=== PATIENT | male | born 1945 | race Caucasian/White ===

== ENCOUNTER 2020-11-17 10:21 | Outpatient (CLI) | payer MEDICARE, BC, SELFPAY ==
[2020-11-17 11:07] LABS: Basophils Absolute Auto 0.1 K/mm3 (0.0-0.1); Basophils Percent Auto 1.3 % (0.2-1.2); Eosinophils Absolute Auto 0.4 K/mm3 (0-0.3); Eosinophils Percent Auto 7.2 % (0-4.4); Hemoglobin 14.5 g/dL (14.0-18.0); Immature Granulocyte Absolute 0.01 K/mm3 (0.00-0.031); Immature Granulocyte Percent A 0.2 % (0-0.5); Lymphocytes Absolute Auto 1.43 K/mm3 (0.9-3.2); Lymphocytes Percent Auto 25.7 % (18.3-44.2); Mean Corpuscular HGB Conc 32.2 g/dl (32-36); Mean Corpuscular Hemoglobin 30.3 pg (26-34); Mean Corpuscular Volume 93.9 fl (80-100); Mean Platelet Volume 11.2 fl (7.4-10.4); Monocytes Absolute Auto 0.5 K/mm3 (0.1-0.6); Monocytes Percent Auto 8.1 % (2.6-8.5); Neutrophils Absolute Auto 3.2 K/mm3 (1.3-6.7); Neutrophils Percent Auto 57.5 % (45.5-73.1); Platelet Count Result 180 k/mm3 (150-375); Red Blood Count 4.79 M/mm3 (4.6-6.20); Red Cell Distribution Width 13.4 % (11.5-14.5); White Blood Count 5.6 K/mm3 (4.5-10.0)
[2020-11-17 11:29] LABS: Alanine Aminotransferase 40 U/L (4-50); Albumin Level 4.3 g/dL (3.5-5.1); Alkaline Phosphatase 65 U/L (38-126); Anion Gap 9 mmol/L (8-16); Aspartate Amino Transferase 33 U/L (17-59); Bilirubin,Total 0.5 mg/dL (0.2-1.3); Blood Urea Nitrogen 11 mg/dL (9-20); Calcium 9.9 mg/dL (8.4-10.2); Carbon Dioxide 24 mmol/L (22-30); Chloride 108 mmol/L (98-107); Cholesterol 192 mg/dL (0-200); Estimated Glomerular Filt Rate > 60; Glucose 120 mg/dL (65-110); HDL Direct 34 mg/dL; Potassium 4.4 mmol/L (3.4-5.0); Sodium 141 mmol/L (137-145); Triglycerides 166 mg/dL (<150)
[2020-11-17 11:40] LABS: LDL Cholesterol Direct 114 mg/dL
[2020-11-17 11:51] LABS: Hemoglobin A1C 6.2 % (<5.7)
[2020-11-17 12:59] LABS: Creatinine Urine 194.5 mg/dL
[2020-11-17 13:04] LABS: MALB Creatinine Ratio 4.4 mg/g (0-30); Microalbumin Urine Random 8.6 mg/L (0-16.7)
[2020-11-17 13:55] LABS: Folic Acid > 20.0 ng/mL (2.76->20)
== END 2020-11-17 10:22 | disposition home or self-care (01) ==
PROVIDERS: PCP Internal Medicine; Visit Provider Nurse Practitioner
DX: Z12.5 Encounter for screening for malignant neoplasm of prostate (principal); E11.9 Type 2 diabetes mellitus without complications; E78.5 Hyperlipidemia, unspecified
CPT/HCPCS: 36415; 80053; 80061; 82043; 82607; 82746; 83036; 84153; 85025; G0103

== ENCOUNTER → 2021-11-03 09:40 | Outpatient (CLI) | payer MEDICARE, SELFPAY ==
--- NOTE | ~2021-11-03 | XR_ITS ---
EXAMINATION: XR chest 2V 11/03/2021 09:50 INDICATION: Shortness of breath PROCEDURE: 2 view chest COMPARISON: No prior studies for comparison. FINDINGS: The lungs are clear. The cardiomediastinal silhouette is within normal limits. There are no pleural effusions. There is no pneumothorax suspected. IMPRESSION: 1: NO ACUTE CARDIOPULMONARY DISEASE. Reviewed, dictated and finalized at location B.
== END ==
PROVIDERS: PCP Internal Medicine; Visit Provider Nurse Practitioner
DX: R06.02 Shortness of breath (principal)
CPT/HCPCS: 71046

== ENCOUNTER 2021-11-08 11:10 | Outpatient (CLI) | payer MEDICARE, SELFPAY ==
[2021-11-08 18:43] LABS: Basophils Absolute Auto 0.1 K/mm3 (0.0-0.1); Basophils Percent Auto 0.8 % (0.2-1.2); Eosinophils Absolute Auto 0.5 K/mm3 (0-0.3); Hematocrit 47.4 % (42.0-52.0); Hemoglobin 15.3 g/dL (14.0-18.0); Immature Granulocyte Absolute 0.01 K/mm3 (0.00-0.031); Immature Granulocyte Percent A 0.2 % (0-0.5); Lymphocytes Absolute Auto 1.76 K/mm3 (0.9-3.2); Lymphocytes Percent Auto 29.2 % (18.3-44.2); Mean Corpuscular HGB Conc 32.3 g/dl (32-36); Mean Corpuscular Hemoglobin 30.1 pg (26-34); Mean Corpuscular Volume 93.1 fl (80-100); Mean Platelet Volume 11.1 fl (7.4-10.4); Monocytes Absolute Auto 0.4 K/mm3 (0.1-0.6); Monocytes Percent Auto 7.1 % (2.6-8.5); Neutrophils Absolute Auto 3.3 K/mm3 (1.3-6.7); Neutrophils Percent Auto 54.7 % (45.5-73.1); Platelet Count Result 164 k/mm3 (150-375); Red Blood Count 5.09 M/mm3 (4.6-6.20); Red Cell Distribution Width 13.3 % (11.5-14.5)
[2021-11-08 19:25] LABS: Alanine Aminotransferase 41 U/L (6-50); Albumin Level 4.3 g/dL (3.5-5.1); Alkaline Phosphatase 67 U/L (38-126); Anion Gap 10 mmol/L (8-16); Aspartate Amino Transferase 41 U/L (17-59); Bilirubin,Total 0.5 mg/dL (0.2-1.3); Blood Urea Nitrogen 11 mg/dL (9-20); Calcium 9.8 mg/dL (8.4-10.2); Carbon Dioxide 25 mmol/L (22-30); Chloride 104 mmol/L (98-107); Cholesterol 211 mg/dL (0-200); Estimated Glomerular Filt Rate > 60; Glucose 124 mg/dL (65-110); HDL Direct 40 mg/dL; Potassium 4.6 mmol/L (3.4-5.0); Sodium 139 mmol/L (137-145); Triglycerides 158 mg/dL (<150)
[2021-11-08 19:26] LABS: Creatinine Urine 92.4 mg/dL
[2021-11-08 19:35] LABS: LDL Cholesterol Direct 145 mg/dL
[2021-11-08 19:57] LABS: Prostate Specific Antigen 3.9 ng/mL (< OR = 4.0)
[2021-11-08 19:58] LABS: Hemoglobin A1C 6.1 % (<5.7)
[2021-11-08 21:02] LABS: MALB Creatinine Ratio < 6.5 mg/g (0-30); Microalbumin Urine Random < 6.0 mg/L (0-16.7)
== END 2021-11-08 11:11 | disposition home or self-care (01) ==
LOC: ANHGOSHLAB 11:16
PROVIDERS: PCP Internal Medicine; Visit Provider Clinical Nurse Specialist
DX: Z12.5 Encounter for screening for malignant neoplasm of prostate (principal); E11.9 Type 2 diabetes mellitus without complications; E78.5 Hyperlipidemia, unspecified; R97.20 Elevated prostate specific antigen [PSA]
CPT/HCPCS: 36415; 80053; 80061; 82043; 83036; 84153; 85025

== ENCOUNTER 2022-03-13 10:48 | Outpatient (CLI) | payer MEDICARE, SELFPAY ==
[2022-03-13 20:18] LABS: Hemoglobin A1C 6.6 % (<5.7)
[2022-03-13 21:06] LABS: Cholesterol 151 mg/dL (0-200); HDL Direct 40 mg/dL; Triglycerides 108 mg/dL (<150)
[2022-03-13 21:17] LABS: LDL Cholesterol Direct 80 mg/dL
== END 2022-03-13 10:49 | disposition home or self-care (01) ==
PROVIDERS: PCP Internal Medicine; Visit Provider Nurse Practitioner
DX: E11.9 Type 2 diabetes mellitus without complications (principal)
CPT/HCPCS: 36415; 80061; 83036

== ENCOUNTER 2022-04-23 13:30 | Emergency (ER) | payer MEDICARE, SELFPAY ==
[2022-04-23 13:39] VITALS: BP 131/75; PULSE 76; RESP 16; TEMP 36.6; O2SAT 100
--- NOTE | 2022-04-23 13:55 | ED.URI ---
HPI - URI/Sore Throat General Stated Complaint: nasal congestion, sneezing Time Seen by Provider: 04/23/22 13:45 Source: patient Mode of arrival: ambulatory Limitations: no limitations History of Present Illness HPI Narrative: Callum is a 76-year-old male patient presenting to the clinic today with complaints of nasal congestion and sneezing x 5 weeks. He denies any sinus pain, fever, or chills. States it feels as though he has a head cold. States that his symptoms began around [place]. Nasal drainage is clear. MD elicited complaint: sore throat and nasal congestion Related Data Home Medications Medication Instructions Recorded Confirmed cholecalciferol (vitamin D3) 1 tablet PO DAILY 11/03/21 03/16/22 mecobalamin (vitamin B12) 1 tablet PO DAILY 11/03/21 03/16/22 multivitamin (Multiple Vitamins 1 tablet PO DAILY 11/03/21 03/16/22 tablet) Allergies Allergy/AdvReac Type Severity Reaction Status Date / Time No Known Allergies Allergy Unverified 03/16/22 11:08 Review of Systems Review of Systems: Pertinent positives per HPI. Patient denies any fever, chills, rash, headache, visual changes, dizziness, cough, shortness of breath, chest pain, palpitations, nausea, vomiting, diarrhea, constipation, abdominal pain, or any urinary issues. [facility] Past Medical History Medical History Chicken pox Heart murmur History of measles, mumps, or rubella Mononucleosis Type 2 diabetes mellitus without complications Surgical History Surgical History History of tonsillectomy Family History Family History Sibling Lung cancer Father Cerebrovascular accident, Onset Age: 85 Patient's father is Hypertension Mother Patient's mother is Type 2 diabetes mellitus COPD (chronic obstructive pulmonary disease) Aneurysm Other Diabetes mellitus Family history of coronary artery disease Social History Social History Smoking status: Former smoker Smoking end date: 10/13/99 Alcohol intake: current Alcohol use details: Pt drinks socially. Lack of Transportation: No Lack of Food: Never True Current Housing: I Have Housing Concerned About Future Housing: No Difficulty Paying Gas/Electric Bills: No Difficulty Paying for Meds: No Currently Unemployed: No Education: Bachelor's Degree Difficulty w/ Childcare or Family Care: No Comments At the time of my signature, I reviewed and agree with the nursing past medical, surgical, social, and family history. There is no relevant family history pertinent to the patient complaint. Exam Narrative: General: Well-developed, well nourished, in no apparent distress Head: Normocephalic, atraumatic Eyes: Pupils equally round and reactive to light bilaterally, EOM intact, sclera and conjunctive clear, no discharge, lids normal Ears: TMs intact and clear, ear canals clear, no drainage, grossly hearing normal. Nose: Nares patent, clear nasal discharge, moderate inflammation, no sinus tenderness. Mouth: Oral pharynx without lesions or masses, good dentition, MMM. Postnasal drip Neck: Supple, trachea midline, no enlargement of anterior or posterior cervical nodes, no thyroid masses or goiter palpable. Cardio: Regular rate and rhythm, s1 and s2 normal, no murmur appreciated. Resp: Clear to auscultation bilaterally, no rhonchi, rales, wheezing or rubs Course Course Emergency Course: Portions of this record may have been created with voice recognition software. Level of Care: Express Care Visit Vital Signs Vital signs: Vital Signs Temperature 36.6 C 04/23/22 13:39 Pulse Rate 76 04/23/22 13:39 Respiratory Rate 16 04/23/22 13:39 Blood Pressure 131/75
== END 2022-04-23 14:02 | disposition home or self-care (01) ==
PROVIDERS: Emergency Provider Nurse Practitioner Family; PCP Internal Medicine
DX: J30.9 Allergic rhinitis, unspecified (principal); Z87.891 Personal history of nicotine dependence; R01.1 Cardiac murmur, unspecified; E11.9 Type 2 diabetes mellitus without complications
CPT/HCPCS: 99213; G0463

== ENCOUNTER 2023-04-02 08:34 | Outpatient (CLI) | payer MEDICARE, SELFPAY ==
--- NOTE | 2023-04-02 08:41 | EST_ITS ---
Patient Info Name: Callum Box Age: 77 years : 1945 Gender: Male Ht: 68 in Wt: 235 lbs BSA: 2.30 m2 HR: 78 bpm BP: 143 / 90 mmHg Exam Date: 04/02/2023 8:53 AM Exam Location: Echo Lab Patient Status: Outpatient Admit Date: 04/02/2023 Staff Ordering Physician: Iwona Gomes NP Attending Provider: Iwona Gomes NP Exercise Technologist: Niya Herbert [facility] Exercise Physician: Oswaldo Hadley DO Exam Type: CA stress test treadmill Study Info A treadmill exercise stress test was performed. Summary 1. 1. Negative Brandon exercise stress test for ischemic ST changes by ECG criteria. 2. 2. Reduced functional capacity, achieving 4.7 METs of workload. 3. 3. Baseline hypertension. 4. 4. Appropriate HR response to exercise. 5. 5. Appropriate HR recovery at 1 minute post exercise. 6. 6. No imaging with stress testing. 7. 7. Patient informed of the above results. Protocol: Brandon Stress ECG Details Stage: REST Duration (min): 0 min : 57 sec Speed (mph): 0.0 Grade (%): 0 HR (bpm): 78 SBP (mmHg): 143 DBP (mmHg): 90 METS: --- Stage: REST Duration (min): 3 min : 23 sec Speed (mph): 0.0 Grade (%): 0 HR (bpm): 101 SBP (mmHg): 143 DBP (mmHg): 90 METS: --- Stage: STAGE 1 Duration (min): 1 min : 0 sec Speed (mph): 1.7 Grade (%): 10 HR (bpm): 117 SBP (mmHg): 143 DBP (mmHg): 90 METS: --- Stage: STAGE 1 Duration (min): 2 min : 0 sec Speed (mph): 1.7 Grade (%): 10 HR (bpm): 133 SBP (mmHg): 143 DBP (mmHg): 90 METS: --- Stage: STAGE 1 Duration (min): 2 min : 25 sec Speed (mph): 1.7 Grade (%): 10 HR (bpm): 138 SBP (mmHg): 143 DBP (mmHg): 90 METS: --- Stage: RECOVERY Duration (min): 0 min : 34 sec Speed (mph): 0.0 Grade (%): 0 HR (bpm): 141 SBP (mmHg): 154 DBP (mmHg): 77 METS: --- Stage: RECOVERY Duration (min): 1 min : 34 sec Speed (mph): 0.0 Grade (%): 0 HR (bpm): 126 SBP (mmHg): 154 DBP (mmHg): 77 METS: --- Stage: RECOVERY Duration (min): 2 min : 34 sec Speed (mph): 0.0 Grade (%): 0 HR (bpm): 97 SBP (mmHg): 182 DBP (mmHg): 92 METS: --- Stage: RECOVERY Duration (min): 3 min : 34 sec Speed (mph): 0.0 Grade (%): 0 HR (bpm): 93 SBP (mmHg): 182 DBP (mmHg): 92 METS: --- Stage: RECOVERY Duration (min): 4 min : 34 sec Speed (mph): 0.0 Grade (%): 0 HR (bpm): 78 SBP (mmHg): 182 DBP (mmHg): 92 METS: --- Stage: RECOVERY Duration (min): 5 min : 28 sec Speed (mph): 0.0 Grade (%): 0 HR (bpm): 90 SBP (mmHg): 152 DBP (mmHg): 92 METS: --- Rest HR: 101 bpm Peak HR: 145 bpm Rest Sys BP: 143 mmHg Peak Sys BP: 182 mmHg Max Pred HR: 144 bpm % Max Pred HR: 101 % Target HR: 122 bpm Max RPP: 26,390 bpm*mmHg Fraga Score: -2 Termination Reason: Reached target heart rate or workload Cardiac Symptoms: Shortness of breath Max ST Seg Deviation: 0.80 mm Total Time: 2 min : 25 sec Rest Gastelum BP: 90 mmHg Peak Gastelum BP:
== END 2023-04-02 08:35 | disposition home or self-care (01) ==
LOC: ANHCARD 08:35
PROVIDERS: PCP Internal Medicine; Visit Provider Nurse Practitioner
DX: R06.02 Shortness of breath (principal); I10 Essential (primary) hypertension
CPT/HCPCS: 93017

== ENCOUNTER 2023-04-27 12:50 | Inpatient (IN) | payer MEDICARE, SELFPAY ==
[2023-04-27] VITALS (25 sets, daily range): BP systolic 87–157; BP diastolic 66–123; PULSE 107–141; RESP 13–24; TEMP 36.1–36.7; O2SAT 90–99; BMI 35.9
--- NOTE | ~2023-04-27 | US_ITS ---
Duplex Sonography of the bilateral lower extremities: Indication: Pulmonary embolus Sagittal and transverse B-mode images as well as color-flow imaging were performed on the right and l eft femoral and popliteal veins. B-mode examination was done without and with compression in the tra nsverse plane. There is good visualization of the bilateral common femoral, proximal profunda femora l, superficial femoral, greater saphenous, and popliteal veins. There is DVT involving the right SFV, which is noncompressible with absence of flow focally. Remainin g deep venous structures in the right lower extremity demonstrate normal flow and compressibility. Deep venous structures in the left lower extremity demonstrate normal flow and compressibility. Impression: DVT involving the right SFV. Reviewed, dictated and finalized at location M. EL POWERPLANT MECHANIC HELPER Impression: DVT involving the right SFV.
--- NOTE | ~2023-04-27 | XR_ITS ---
EXAMINATION: XR chest 2V DATE: 04/27/2023 13:20 INDICATION: Chest pain TECHNIQUE: PA and lateral views of the chest are obtained. COMPARISON: 11/03/2021 FINDINGS: The lungs are free of acute opacities. No pleural effusion or pneumothorax. The cardiomedia stinal silhouette is normal. There is moderate thoracic spondylosis. IMPRESSION: 1. No acute cardiopulmonary abnormality. Reviewed, dictated and finalized at location F. SEWER
--- NOTE | ~2023-04-27 | CT_ITS ---
Clinical Indication: Shortness of breath CT Scan of the Chest with Contrast: Technique: Contiguous sections were acquired throughout the chest after intravenous administration of 100 cc of Omnipaque 350. Dose reduction technique was used on this scan by utilizing automated expos ure control and iterative reconstruction technique. The dose-length product (DLP) was 916.10 mGy-cm. Findings: There is no evidence of any significant mediastinal, hilar or axillary lymphadenopathy. There are ext ensive bilateral pulmonary emboli, involving the right and left main pulmonary arteries, with extensi on into the lobar pulmonary arteries as well as multiple segmental branches. No complete sagittal emb olus present. No definite evidence of right heart strain. There is no evidence of aortic dissection o r aneurysm. There is no evidence of pleural or pericardial effusion. The lungs are clear. No pulmonary nodules or infiltrates are noted. Images through the upper abdomen reveal no abnormalities. Impression: Extensive bilateral pulmonary emboli, as detailed above. No definite evidence of right heart strain. Clear lungs. Case discussed with Dr. Allen at the time of this reading. Reviewed, dictated and finalized at location M. NG SUPERVISOR Impression: Extensive bilateral pulmonary emboli, as detailed above. No definite evidence o f right heart strain. Clear lungs. Case discussed with Dr. Allen at the time of this reading.
--- NOTE | 2023-04-27 12:54 | ECG_ITS ---
Measurements Intervals Valera Rate: 110 P: 79 [place]: 109 QRS: 10 QRSD: 74 T: -2 QT: 309 QTc: 419 Interpretive Statements SINUS TACHYCARDIA WITH SHORT [place] INTERVAL WITH FREQUENT SUPRAVENTRICULAR PREMATURE COMPLEXES ABNORMAL ECG NO PREVIOUS ECG AVAILABLE FOR COMPARISON Electronically Signed On 04-27-2023 13:23:37 THERMOCOUPLE TESTER by Kal Bar M.D.
[2023-04-27 13:08] LABS: Basophils Percent Auto 0.4 % (0.2-1.2); Eosinophils Absolute Auto 0.2 K/mm3 (0-0.3); Eosinophils Percent Auto 2.1 % (0-4.4); Hematocrit 45.3 % (42.0-52.0); Hemoglobin 14.8 g/dL (14.0-18.0); Immature Granulocyte Absolute 0.02 K/mm3 (0.00-0.031); Immature Granulocyte Percent A 0.2 % (0-0.5); Lymphocytes Absolute Auto 2.14 K/mm3 (0.9-3.2); Lymphocytes Percent Auto 26.1 % (18.3-44.2); Mean Corpuscular HGB Conc 32.7 g/dl (32-36); Mean Corpuscular Hemoglobin 30.3 pg (26-34); Mean Corpuscular Volume 92.8 fl (80-100); Mean Platelet Volume 10.8 fl (7.4-10.4); Monocytes Absolute Auto 0.5 K/mm3 (0.1-0.6); Monocytes Percent Auto 5.9 % (2.6-8.5); Neutrophils Absolute Auto 5.4 K/mm3 (1.3-6.7); Neutrophils Percent Auto 65.3 % (45.5-73.1); Platelet Count Result 154 k/mm3 (150-375); Red Blood Count 4.88 M/mm3 (4.6-6.20); Red Cell Distribution Width 13.7 % (11.5-14.5); White Blood Count 8.2 K/mm3 (4.5-10.0)
[2023-04-27 13:19] LABS: Alanine Aminotransferase 47 U/L (6-50); Albumin Level 4.2 g/dL (3.5-5.1); Alkaline Phosphatase 70 U/L (38-126); Anion Gap 9 mmol/L (8-16); Aspartate Amino Transferase 47 U/L (17-59); Bilirubin,Total 0.8 mg/dL (0.2-1.3); Blood Urea Nitrogen 14 mg/dL (9-20); Calcium 9.9 mg/dL (8.4-10.2); Carbon Dioxide 20 mmol/L (22-30); Chloride 111 mmol/L (98-107); Estimated CRCL calculation 73 ml/min; Estimated Glomerular Filt Rate > 60; Glucose 145 mg/dL (65-110); Lipase 196 U/L (23-300); Partial Thromboplastin Time 29.1 SECONDS (22.3-36.8); Potassium 4.1 mmol/L (3.4-5.0); Sodium 140 mmol/L (137-145)
[2023-04-27 13:37] LABS: Troponin I 0.065 ng/mL (0.000-0.034)
[2023-04-27] MEDS: ASPIRIN 81 MG CHEWABLE TABLET 324 MG PO (14:16)
[2023-04-27] MEDS: SODIUM CHLORIDE 0.9% IV 1,000 ML 999 ML IV CONT (15:20)
--- NOTE | 2023-04-27 15:46 | ED.SOB ---
HPI - SOB/Dyspnea General Chief Complaint: Chest Pain Stated Complaint: sob/chest tightness Time Seen by Provider: 04/27/23 15:04 Source: patient Limitations: no limitations History of Present Illness HPI Narrative: Patient is a 77-year-old male presents to the emergency department complaining of shortness of breath, chest tightness, sweatiness, lightheadedness. Patient denies any chest pain rather he states that it just feels tight the patient states that he has been stressed recently his just had surgery on Saturday. Patient admits to an episode of this last week and resolved and then he has noticed since about Saturday that he has been experiencing this constellation of symptoms this seems to be progressively worsening noted that he gets dyspnea on exertion and he noticed it only took about 50 ft for him to get short of breath which is not normal for him. Patient denies a history of heart disease. Patient denies family history of early heart disease. Patient admits to history of high cholesterol and was a former smoker and quit in the year 1999. Patient denies history of high blood pressure or diabetes. Patient denies history of blood clots or unilateral lower extremity swelling. Patient denies recent injuries, recent illness, fever, cough, abdominal pain, nausea, vomiting, diarrhea, melena, hematochezia, urinary discomfort, rash, numbness, weakness, new or change medications. Patient is to history of a stress test approximately 1 month ago. Related Data Home Medications Medication Instructions Recorded Confirmed cholecalciferol (vitamin D3) 1 tablet PO DAILY 11/03/21 03/07/23 mecobalamin (vitamin B12) 1 tablet PO DAILY 11/03/21 03/07/23 multivitamin (Multiple Vitamins 1 tablet PO DAILY 11/03/21 03/07/23 tablet) Allergies Allergy/AdvReac Type Severity Reaction Status Date / Time No Known Allergies Allergy Unverified 03/07/23 11:17 Review of Systems Review of Systems: A 10 system review of systems was completed on the patient and is negative except for what is stated in the HPI. Nursing and ancillary documentation was reviewed. [facility] Past Medical History Medical History Chicken pox Heart murmur History of measles, mumps, or rubella Mononucleosis Type 2 diabetes mellitus without complications Surgical History Surgical History History of tonsillectomy Family History Family History Sibling Lung cancer Father Cerebrovascular accident, Onset Age: 85 Patient's father is Hypertension Mother Patient's mother is Type 2 diabetes mellitus COPD (chronic obstructive pulmonary disease) Aneurysm Other Diabetes mellitus Family history of coronary artery disease Social History Social History (Updated 03/07/23 @ 11:25 by Smita Morrow [facility]) Smoking status: Former smoker Smoking end date: 10/13/99 Alcohol intake: current Alcohol use details: Pt drinks socially. Do You Feel Safe in your Home?: Yes Lack of Transportation: No Lack of Food: Never True Current Housing: I Have Housing Concerned About Future Housing: No Difficulty Paying Gas/Electric Bills: No Difficulty Paying for Meds: No Currently Unemployed: No Education: Bachelor's Degree Difficulty w/ Childcare or Family Care: No Comments At time of signature, I have reviewed and agree with nursing past medical, surgical, social and family history unless otherwise noted. Please see the nursing chart for further information. There is no relevant family history pertinent to the presenting complaint. Exam Narrative: CONST: No acute distress. Well nourished. HENMT: Head is normocephalic and atraumatic. Moist mucous membranes. No posterior oropharynx erythema. EYES: No conjunctival ict
[2023-04-27 15:48] LABS: Magnesium 2.3 mg/dL (1.6-2.3)
[2023-04-27 15:49] LABS: D Dimer 9.63 ug/mL (<0.48)
[2023-04-27 15:56] LABS: Thyroid Stimulating Hormone Reflex 0.825 uIU/mL (0.465-4.68)
[2023-04-27 16:06] LABS: Troponin I 0.073 ng/mL (0.000-0.034)
[2023-04-27 16:12] LABS: Influenza A QL RT-PCR Negative (Negative); Influenza B QL RT-PCR Negative (Negative); RSV RNA, RT-PCR Negative (Negative); SARS-CoV-2 RNA PCR Negative (Negative)
[2023-04-27 16:52] LABS: NT Pro B Type Natriuretic Pept 5440 pg/mL (19.9-100)
[2023-04-27] MEDS: HEPARIN SODIUM 5,000 UNITS/ML VIAL 6500 UNITS IV PUSH (17:37)
[2023-04-27] MEDS: HEPARIN SOD/D5W 100 UNITS/ML 25,000 UNITS/250 ML BAG 15 UNITS IV CONT (17:38)
--- NOTE | 2023-04-27 18:31 | ADMGEN ---
This patient, Callum Box, was admitted to IMU Room 205-01. Patient/family oriented to hospital policies and general routines including ID bracelet, bed and alarms, visiting hours, pain management, procedures, bathroom and other care routines, personal items, smoking policy, room service/diet, and visiting hours. Information on how to activate the Rapid Response Team has been discussed. Patient/Family are encouraged to report perceived risks to care and to ask questions if they do not understand what they are told or what they should do.
--- NOTE | 2023-04-27 19:06 | PM.IMHP ---
H&P: HPI History of Present Illness Date/Time: 04/27/23 19:05 Chief Complaint: Chest tightness and shortness of breath. Narrative: This is a very pleasant 77-year-old male with diet-controlled diabetes, hypercholesterolemia, and obstructive sleep apnea on CPAP who presented to the emergency department via private vehicle from home for evaluation of chest tightness and shortness of breath. The patient provides the following history. He initially noticed symptoms on Saturday to include progressive dyspnea on exertion, chest tightness, occasional sweats, and lightheadedness. It is now to the point where he gets short of breath even walking 50 ft around the home which is unusual for him. His symptoms have been getting worse each day. He has no known history of coronary artery disease and in fact had a treadmill stress test on April 02 which was negative for ischemic ST changes by EKG. This stress test was ordered after he noticed sometime in February that he was becoming winded when walking up a flight of steps in his home which was a new development. EKG today showed a sinus tachycardia with frequent supraventricular complexes and he has been tachycardic in the low 100s since presentation. Labs were significant for a D-dimer of 9.63, proBNP 5440, troponin of 0.065. Chest CTA showed extensive bilateral pulmonary emboli with no definite evidence of right heart strain. Blood pressures have been stable and his SpO2 has been in the mid to upper 90s on room air. He was started on heparin drip in the ED and is being admitted in this setting. He has no prior history of venous thromboembolism and denies family history of the same. Weight has remained stable. Colonoscopy several years ago was unremarkable. He had 1 elevated PSA level but it apparently normalized. No recent travel. He denies a sedentary lifestyle. Review of Systems Review of Systems: Twelve systems were reviewed and are negative except for as per HPI. [facility] Past Medical History Medical History Chicken pox Diet-controlled type 2 diabetes mellitus Heart murmur History of measles, mumps, or rubella Hyperlipidemia Mononucleosis Obstructive sleep apnea on CPAP Smoking history Surgical History Surgical History History of tonsillectomy Family History Family History Sibling Lung cancer Father Cerebrovascular accident, Onset Age: 85 Patient's father is Hypertension Mother Patient's mother is Type 2 diabetes mellitus COPD (chronic obstructive pulmonary disease) Aneurysm Other Diabetes mellitus Family history of coronary artery disease Social History Social History Social History: Surrogate medical decision maker: Chelsi Box, spouse. Code status: Full code. Smoking packs per day: 1.5 Smoking cigarettes per day: 30.0 Years smoked: 34 Smoking pack-years: 51.00 Smoking status: Former smoker Smoking end date: 10/13/99 Alcohol intake: current Drinks per week: 1 Alcohol use details: Pt drinks socially. Substance use: never Do You Feel Safe in your Home?: Yes Lack of Transportation: No Lack of Food: Never True Current Housing: I Have Housing Concerned About Future Housing: No Difficulty Paying Gas/Electric Bills: No Difficulty Paying for Meds: No Currently Unemployed: No Education: High School Diploma/GED Difficulty w/ Childcare or Family Care: No Additional living arrangements comments: Lives with spouse in [place]. Additional occupation/education comments: Retired. Spiritual care concerns: Yes Meds Home Medications and Allergies Home Medications Medication Instructions Recorded Confirmed Type multivitamin (Multiple Vitamins 1 tablet PO 2100 11/03/21 04/27/23 History tablet)
[2023-04-27 19:28] LABS: Troponin I 0.082 ng/mL (0.000-0.034)
[2023-04-27 19:38] LABS: Partial Thromboplastin Time > 200.0 SECONDS (22.3-36.8)
[2023-04-27 19:47] LABS: Hemoglobin A1C 6.9 % (<5.7)
[2023-04-27 21:07] LABS: Glucose Point of Care 177 mg/dl (65-105)
[2023-04-27] MEDS: SODIUM CHLORIDE 0.9% IV 1,000 ML 125 ML IV CONT (22:14)
[2023-04-27] MEDS: MULTIVITAMINS THERAPEUTIC TAB (*BKC) 1 TABLET PO (22:15)
[2023-04-27] MEDS: EZETIMIBE 10 MG TABLET PO (22:15)
[2023-04-27] MEDS: VITAMIN B COMPLEX CAPSULE 1 CAP PO (22:15)
[2023-04-27] MEDS: CHOLECALCIFEROL 400 UNITS TABLET (VIT D) PO (22:16)
[2023-04-28] VITALS (12 sets, daily range): BP systolic 112–139; BP diastolic 61–94; PULSE 100–122; RESP 15–20; TEMP 36.2–36.8; O2SAT 93–96
[2023-04-28 07:53] LABS: Glucose Point of Care 124 mg/dl (65-105)
[2023-04-28 08:35] LABS: Basophils Absolute Auto 0.1 K/mm3 (0.0-0.1); Basophils Percent Auto 0.6 % (0.2-1.2); Eosinophils Absolute Auto 0.2 K/mm3 (0-0.3); Eosinophils Percent Auto 1.9 % (0-4.4); Hematocrit 42.1 % (42.0-52.0); Hemoglobin 13.5 g/dL (14.0-18.0); Immature Granulocyte Absolute 0.02 K/mm3 (0.00-0.031); Immature Granulocyte Percent A 0.2 % (0-0.5); Lymphocytes Absolute Auto 2.32 K/mm3 (0.9-3.2); Lymphocytes Percent Auto 28.2 % (18.3-44.2); Mean Corpuscular HGB Conc 32.1 g/dl (32-36); Mean Corpuscular Hemoglobin 30.4 pg (26-34); Mean Corpuscular Volume 94.8 fl (80-100); Mean Platelet Volume 11.1 fl (7.4-10.4); Monocytes Absolute Auto 0.7 K/mm3 (0.1-0.6); Monocytes Percent Auto 8.1 % (2.6-8.5); Platelet Count Result 142 k/mm3 (150-375); Red Blood Count 4.44 M/mm3 (4.6-6.20); White Blood Count 8.2 K/mm3 (4.5-10.0)
[2023-04-28 08:46] LABS: Alanine Aminotransferase 40 U/L (6-50); Albumin Level 3.5 g/dL (3.5-5.1); Alkaline Phosphatase 67 U/L (38-126); Anion Gap 10 mmol/L (8-16); Aspartate Amino Transferase 35 U/L (17-59); Bilirubin,Total 0.8 mg/dL (0.2-1.3); Blood Urea Nitrogen 15 mg/dL (9-20); Calcium 9.3 mg/dL (8.4-10.2); Carbon Dioxide 21 mmol/L (22-30); Chloride 110 mmol/L (98-107); Estimated CRCL calculation 12 ml/min; Estimated Glomerular Filt Rate > 60; Glucose 156 mg/dL (65-110); Magnesium 2.3 mg/dL (1.6-2.3); Potassium 4.1 mmol/L (3.4-5.0); Sodium 141 mmol/L (137-145)
[2023-04-28 08:47] LABS: Partial Thromboplastin Time 82.3 SECONDS (22.3-36.8)
[2023-04-28 09:28] LABS: Thyroid Stimulating Hormone Reflex 0.748 uIU/mL (0.465-4.68)
[2023-04-28 11:53] LABS: Glucose Point of Care 114 mg/dl (65-105)
[2023-04-28] MEDS: HEPARIN SOD/D5W 100 UNITS/ML 25,000 UNITS/250 ML BAG 12 UNITS IV CONT (14:45)
[2023-04-28 15:15] LABS: Partial Thromboplastin Time 63.1 SECONDS (22.3-36.8)
[2023-04-28 15:52] LABS: Prostate Specific Antigen 3.9 ng/mL (< OR = 4.0)
[2023-04-28 15:54] LABS: Glucose Point of Care 125 mg/dl (65-105)
[2023-04-28] MEDS: HEPARIN SODIUM 5,000 UNITS/ML VIAL 3500 UNITS IV PUSH (16:16)
--- NOTE | 2023-04-28 17:31 | PM.IMPN ---
Progress Note: A&P Assessment and Plan (1) Bilateral pulmonary embolism: Code(s): I26.99 - Other pulmonary embolism without acute cor pulmonale Status: Acute Assessment and Plan: Awaiting ECHO and venous dopplers Will Start on Eliquis tomorrow (2) Elevated troponin: Code(s): R79.89 - Other specified abnormal findings of blood chemistry Status: Acute (3) Diet-controlled type 2 diabetes mellitus: Code(s): E11.9 - Type 2 diabetes mellitus without complications Status: Acute (4) Obstructive sleep apnea on CPAP: Code(s): G47.33 - Obstructive sleep apnea (adult) (pediatric) Status: Acute (5) Hyperlipidemia: Qualifiers: Hyperlipidemia type: unspecified Qualified Code(s): E78.5 - Hyperlipidemia, unspecified Code(s): E78.5 - Hyperlipidemia, unspecified Status: Acute Plan The patient presented to the emergency department for evaluation of chest tightness and increasing dyspnea since Saturday as detailed in HPI. Labs, imaging, EKG, and all reports were personally reviewed. CTA of the chest showed extensive bilateral pulmonary emboli with no noticeable heart strain. Troponin was mildly elevated and proBNP was 5440. He is hemodynamically stable with blood pressures in the 120s an SpO2 in the mid upper 90s on room air. He does not appear in any distress. Heparin drip has been initiated. Lower extremity venous Doppler ultrasounds ordered to evaluate for possible DVT. Precipitating etiology is not entirely clear. He gives no history to suggest that it was provoked. Check PSA as he reports having an isolated, elevated PSA level a couple of years ago. Troponins will be trended to peak. Echocardiogram ordered. Initiate sliding scale insulin, Accu-Cheks, and hypoglycemic protocol. Check hemoglobin A1c. CPAP will be provided for the patient to use while hospitalized. His home medications will be reviewed and resumed as appropriate. Findings and treatment plan were discussed with the patient. Subjective Date/time seen: 04/28/23 17:31 Interval history: Seen and examined; He denies fresh concerns. Review of Systems Review of Systems: Twelve systems were reviewed and are negative except for as per HPI. Exam Narrative: General: Mildly ill but nontoxic-appearing male sitting up in bed. HEENT: PERRL, EOMI. Sclera anicteric. Oral mucosa moist. Neck: Supple. Mild jugular venous distension. Respiratory: Respirations are nonlabored but he did get a bit short of breath when trying to push himself up in bed. Lung are clear to auscultation bilaterally. Cardiovascular: Tachycardic with normal S1-S2. Gastrointestinal: Abdomen is soft, nontender, and nondistended with positive bowel sounds. Skin: Warm and dry. No rash or lesions on limited exam. Extremities: No cyanosis, clubbing, or significant edema. Radial and pedal pulses intact. No palpable knots or cords. Negative Monika sign bilaterally. Neurological: Alert. Cranial nerves 2-12 are grossly intact. No gross focal deficits to casual conversation. Psychiatric: Pleasant and cooperative with normal mood and affect. Judgment and insight intact. Objective Data Vital Signs Vital Signs: Vital Signs - 24 hr 04/27/23 17:40 04/27/23 17:46 04/27/23 18:00 Temperature 97.5 F L Pulse Rate 135 H 134 H 131 H Respiratory Rate 24 H 15 20 Blood Pressure 124/92 H 112/88 Pulse Oximetry 95 96 Oxygen Delivery 04/27/23 18:01 04/27/23 18:16 04/27/23 18:40 Temperature Pulse Rate 133 H 131 H Respiratory Rate 16 22 H Blood Pressure 118/81 122/93 H Pulse Oximetry 97 95 Oxygen Delivery Room Air 04/27/23 19:10 04/27/23 19:11 04/27/23 20:00 Temperature 98.0 F 96.9 F L Pulse Rate 126 H 131 H Respiratory Rate 20 20 Blood Pressure 87/73 L 120/84 98/72 L Pulse Oximetry 96 93 Oxygen Delivery 04/27/23 20:00 04/27/23 23:32 04/28/23 00:00 Temperature 97.4 F L Pulse Rate 141 H
[2023-04-28 19:46] LABS: Glucose Point of Care 156 mg/dl (65-105)
[2023-04-28] MEDS: CHOLECALCIFEROL 400 UNITS TABLET (VIT D) PO (20:10)
[2023-04-28] MEDS: MULTIVITAMINS THERAPEUTIC TAB (*BKC) 1 TABLET PO (20:10)
[2023-04-28] MEDS: VITAMIN B COMPLEX CAPSULE 1 CAP PO (20:11)
[2023-04-28] MEDS: EZETIMIBE 10 MG TABLET PO (20:11)
[2023-04-28 22:40] LABS: Partial Thromboplastin Time 111.4 SECONDS (22.3-36.8)
[2023-04-29] VITALS: PULSE 109
--- NOTE | 2023-04-29 | ECHO_ITS ---
Patient Info Name: Callum Box Age: 77 years : 1945 Gender: Male Ht: 68 in Wt: 229 lbs BSA: 2.27 m2 HR: 111 bpm BP: 133 / 75 mmHg Technical Quality: Fair Exam Date: 04/29/2023 7:59 AM Exam Location: Echo Lab Patient Status: Inpatient Admit Date: 04/27/2023 Staff Ordering Physician: Tai Tang MD Executive Search Consultant: Niya Herbert RDCS Attending Provider: Oz Silva MD Referring Physician: Clyde WATSON; Exam Type: CA echo dop color flow w con Study Info Indications - Pulmonary embolism Complete two-dimensional, color flow and Doppler transthoracic echocardiogram is performed with contrast to opacify the left ventricle and to improve the deliniation of the left ventricle endocardial borders. Contrast/Agitated Saline Contrast/Ag. Saline: Definity Amount: 2.00 ml Administered By: Niya Herbert RDCS Existing IV Access: Yes IV Access Condition: patent with no signs of infiltration Summary 1. Definity contrast administered improved wall motion interpretation. 2. Left ventricular chamber dimension is normal. 3. Left ventricular systolic function is hyperdynamic, estimated at >70%. 4. The left ventricular diastolic function is grade I diastolic dysfunction. 5. E/e' 4 is not elevated. 6. Right ventricular chamber dimension is mildly enlarged. 7. D shape LV septum during systole suggests RV pressure overload. 8. Right atrial chamber dimension is mildly enlarged. 9. There is mild aortic valve sclerosis. 10. Mild pulmonary hypertension, estimated pulmonary arterial systolic pressure is 43 mmHg. Left Ventricle Definity contrast administered improved wall motion interpretation. E/e' 4 is not elevated. Left ventricular chamber dimension is normal. Left ventricular systolic function is hyperdynamic, estimated at >70%. The left ventricular diastolic function is grade I diastolic dysfunction. Right Ventricle D shape LV septum during systole suggests RV pressure overload. Right ventricular systolic function is normal and with normal TAPSE 2.1 cm. Right ventricular chamber dimension is mildly enlarged. Left Atria Left atrial chamber dimension is normal. Right Atria Right atrial chamber dimension is mildly enlarged. Aortic Valve The aortic valve is trileaflet. There is mild aortic valve sclerosis. There is no aortic valve stenosis. There is no aortic valve regurgitation. Pulmonic Valve There is no pulmonic regurgitation. Mitral Valve There is no mitral valve stenosis. There is no mitral valve regurgitation. Tricuspid Valve There is no tricuspid valve regurgitation. Mild pulmonary hypertension, estimated pulmonary arterial systolic pressure is 43 mmHg. Pericardium/Pleural There is no pericardial effusion. Inferior Vena Cava Normal inferior vena cava with >50% collapse upon inspiration consistent with normal right atrial pressure, 5 mmHg. Aorta The aortic root size at the sinus of Valsalva is normal. Left Ventricular Outflow Tract Name Value Normal LVOT 2D LVOT Diameter 2.04 cm LVOT Doppler LVOT Peak Gradient 1 mmHg LVOT Mean Gradient 1 mmHg LVOT VTI
[2023-04-29 04:00] VITALS: PULSE 119
[2023-04-29 05:07] LABS: Basophils Percent Auto 0.4 % (0.2-1.2); Eosinophils Absolute Auto 0.3 K/mm3 (0-0.3); Eosinophils Percent Auto 3.3 % (0-4.4); Hematocrit 42.2 % (42.0-52.0); Hemoglobin 13.7 g/dL (14.0-18.0); Immature Granulocyte Absolute 0.03 K/mm3 (0.00-0.031); Immature Granulocyte Percent A 0.4 % (0-0.5); Lymphocytes Absolute Auto 2.38 K/mm3 (0.9-3.2); Lymphocytes Percent Auto 29.8 % (18.3-44.2); Mean Corpuscular HGB Conc 32.5 g/dl (32-36); Mean Corpuscular Hemoglobin 30.4 pg (26-34); Mean Corpuscular Volume 93.6 fl (80-100); Monocytes Absolute Auto 0.6 K/mm3 (0.1-0.6); Monocytes Percent Auto 7.1 % (2.6-8.5); Neutrophils Absolute Auto 4.7 K/mm3 (1.3-6.7); Platelet Count Result 150 k/mm3 (150-375); Red Blood Count 4.51 M/mm3 (4.6-6.20); Red Cell Distribution Width 13.8 % (11.5-14.5)
[2023-04-29 05:20] LABS: Alanine Aminotransferase 38 U/L (6-50); Albumin Level 3.7 g/dL (3.5-5.1); Alkaline Phosphatase 64 U/L (38-126); Anion Gap 8 mmol/L (8-16); Aspartate Amino Transferase 36 U/L (17-59); Bilirubin,Total 0.8 mg/dL (0.2-1.3); Blood Urea Nitrogen 13 mg/dL (9-20); Calcium 9.4 mg/dL (8.4-10.2); Carbon Dioxide 24 mmol/L (22-30); Chloride 109 mmol/L (98-107); Estimated CRCL calculation 11 ml/min; Estimated Glomerular Filt Rate > 60; Glucose 138 mg/dL (65-110); Sodium 141 mmol/L (137-145)
[2023-04-29 06:06] LABS: Partial Thromboplastin Time 76.6 SECONDS (22.3-36.8)
[2023-04-29 06:10] VITALS: BP 133/75; PULSE 128; RESP 18; TEMP 36.2; O2SAT 93
[2023-04-29 07:50] LABS: Glucose Point of Care 141 mg/dl (65-105)
[2023-04-29 08:00] VITALS: BP 124/84; PULSE 116; PULSE 117; RESP 20; TEMP 36.7; O2SAT 93
[2023-04-29] MEDS: PERFLUTREN LIPID MICROSPHERES 1.5 ML VIAL DILUTED TO 10 ML TOTAL VOLUME IV PUSH (08:50)
[2023-04-29] MEDS: APIXABAN 5 MG TABLET 10 MG PO (09:22)
--- NOTE | 2023-04-29 12:40 | IVDEFINITY ---
Prior to administration of IV Definity the patient was educated on the risks and benefits of the imaging enhancing agent including potential adverse side effects. The patient verbalized understanding. Allergies were verified. No exclusion criteria were identified and at least one of the following inclusion criteria were met: 1) physician request, 2) patient technically difficult to image (per the [place] [employer] Echocardi[employer] guidelines of two or more segments not discernable within the apical view), or 3) questionable left ventricular function. ?
[2023-04-29 13:49] LABS: Glucose Point of Care 130 mg/dl (65-105)
--- NOTE | 2023-04-29 15:13 | PM.DS ---
DS: Admitting Diagnosis Discharge Date 04/29/23 Admitting Diagnosis 1. Bilateral PE 2. Shortness of breath DS: Discharge Diagnosis Discharge Diagnosis (1) Bilateral pulmonary embolism: Code(s): I26.99 - Other pulmonary embolism without acute cor pulmonale Status: Acute Assessment and Plan: Heparin; Eliquis (2) Saphenous vein clot: Qualifiers: Laterality: right Qualified Code(s): I82.811 - Embolism and thrombosis of superficial veins of right lower extremity Code(s): I82.819 - Embolism and thrombosis of superficial veins of unspecified lower extremity Status: Acute Assessment and Plan: Heparin infusion; Discharged on Eliquis (3) Hyperlipidemia: Qualifiers: Hyperlipidemia type: unspecified Qualified Code(s): E78.5 - Hyperlipidemia, unspecified Code(s): E78.5 - Hyperlipidemia, unspecified Status: Acute Assessment and Plan: On Ezetimibe (4) Diet-controlled type 2 diabetes mellitus: Code(s): E11.9 - Type 2 diabetes mellitus without complications Status: Acute (5) Obesity (BMI 30-39.9): Code(s): E66.9 - Obesity, unspecified Status: Acute Assessment and Plan: Diet and lifestyle modification counseling DS: Summary Hospital Course Reason for hospitalization: 1. Shortness of breath 2. Bilateral pulmonary emboli 3. Right SFV thrombus Hospital Course: Callum Box is a very pleasant 77-year-old male with diet-controlled diabetes, hypercholesterolemia, and obstructive sleep apnea on CPAP who presented to the emergency department via private vehicle from home for evaluation of chest tightness and shortness of breath. The patient provides the following history. He initially noticed symptoms on Saturday to include progressive dyspnea on exertion, chest tightness, occasional sweats, and lightheadedness. It is now to the point where he gets short of breath even walking 50 ft around the home which is unusual for him. His symptoms have been getting worse each day. He has no known history of coronary artery disease and in fact had a treadmill stress test on April 02 which was negative for ischemic ST changes by EKG. This stress test was ordered after he noticed sometime in February that he was becoming winded when walking up a flight of steps in his home which was a new development. EKG showed a sinus tachycardia with frequent supraventricular complexes and he has been tachycardic in the low 100s since presentation. Labs were significant for a D-dimer of 9.63, proBNP 5440, troponin of 0.065. Chest CTA showed extensive bilateral pulmonary emboli with no definite evidence of right heart strain. Blood pressures have been stable and his SpO2 has been in the mid to upper 90s on room air. He was started on heparin drip in the ED and is being admitted in this setting. He has no prior history of venous thromboembolism and denies family history of the same. Weight has remained stable. Colonoscopy several years ago was unremarkable. He had 1 elevated PSA level but it apparently normalized. No recent travel. He denies a sedentary lifestyle. Procedures: CTA chest, ECHO, Venous ECHO: Summary ? 1. Definity contrast administered improved wall motion interpretation. ? 2. Left ventricular chamber dimension is normal. ? 3. Left ventricular systolic function is hyperdynamic, estimated at >70%. ? 4. The left ventricular diastolic function is grade I diastolic dysfunction. ? 5. E/e' 4 is not elevated. ? 6. Right ventricular chamber dimension is mildly enlarged. ? 7. D shape LV septum during systole suggests RV pressure overload. ? 8. Right atrial chamber dimension is mildly enlarged. ? 9. There is mild aortic valve sclerosis. ? 10. Mild pulmonary hypertension, estimated pulmonary arterial systolic pressure is 43 mmHg. Bilateral Lower extremity doppler: DVT involving the right SFV. Treatment: Heparin infusion; Teresa Discharged on
[2023-04-29 15:22] VITALS: BP 140/90; PULSE 115; RESP 18; TEMP 36.8; O2SAT 95
== END 2023-04-29 17:15 | disposition home or self-care (01) | DRG 176 ==
LOC: ANHED 17:09 → ANHIMU 17:52
PROVIDERS: Emergency Medicine; Internal Medicine; Physician Assistant; Admitting Provider Internal Medicine; Emergency Provider Student in an Organized Health Care Education/Training Program; PCP Internal Medicine; Visit Provider Internal Medicine
DX: I26.99 Other pulmonary embolism without acute cor pulmonale (principal); I82.811 Embolism and thrombosis of superficial veins of right lower extremity; E11.9 Type 2 diabetes mellitus without complications; E78.00 Pure hypercholesterolemia, unspecified; E66.9 Obesity, unspecified; G47.33 Obstructive sleep apnea (adult) (pediatric); R79.89 Other specified abnormal findings of blood chemistry; Z68.35 Body mass index [BMI] 35.0-35.9, adult; Z20.822 Contact with and (suspected) exposure to COVID-19; Z87.891 Personal history of nicotine dependence; Z99.89 Dependence on other enabling machines and devices
CPT/HCPCS: 36415; 71046; 71275; 80053; 82948; 83036; 83690; 83735; 83880; 84153; 84443; 84484; 85025; 85380; 85610; 85730; 87637; 93005; 93970; 96361; 96374; 97161; 99291; A9270; C8929; J1644; J7030; Q9957; Q9967

== ENCOUNTER 2023-05-10 10:26 | Outpatient (CLI) | payer MEDICARE, SELFPAY ==
[2023-05-10 19:48] LABS: Basophils Absolute Auto 0.1 K/mm3 (0.0-0.1); Eosinophils Absolute Auto 0.4 K/mm3 (0-0.3); Eosinophils Percent Auto 6.4 % (0-4.4); Hematocrit 46.8 % (42.0-52.0); Hemoglobin 14.8 g/dL (14.0-18.0); Immature Granulocyte Absolute 0.01 K/mm3 (0.00-0.031); Immature Granulocyte Percent A 0.2 % (0-0.5); Lymphocytes Absolute Auto 1.42 K/mm3 (0.9-3.2); Lymphocytes Percent Auto 22.7 % (18.3-44.2); Mean Corpuscular HGB Conc 31.6 g/dl (32-36); Mean Corpuscular Hemoglobin 30.1 pg (26-34); Mean Corpuscular Volume 95.3 fl (80-100); Mean Platelet Volume 11.5 fl (7.4-10.4); Monocytes Absolute Auto 0.5 K/mm3 (0.1-0.6); Monocytes Percent Auto 7.2 % (2.6-8.5); Neutrophils Absolute Auto 3.9 K/mm3 (1.3-6.7); Neutrophils Percent Auto 62.5 % (45.5-73.1); Platelet Count Result 191 k/mm3 (150-375); Red Blood Count 4.91 M/mm3 (4.6-6.20); Red Cell Distribution Width 13.5 % (11.5-14.5); White Blood Count 6.3 K/mm3 (4.5-10.0)
[2023-05-17 18:17] LABS: Factor V (Leiden) Mutation NEGATIVE
== END 2023-05-10 10:27 | disposition home or self-care (01) ==
LOC: ANHGOSHLAB 10:28
PROVIDERS: PCP Internal Medicine; Visit Provider Clinical Nurse Specialist
DX: I26.99 Other pulmonary embolism without acute cor pulmonale (principal); I82.819 Embolism and thrombosis of superficial veins of unspecified lower extremity
CPT/HCPCS: 36415; 81240; 81241; 85025

== ENCOUNTER 2023-05-17 11:46 | Outpatient (CLI) | payer MEDICARE, SELFPAY ==
[2023-05-23 05:21] LABS: Anti Cardio Antibody IgM <2.0 MPL-U/mL (<20.0); Anti Cardiolipin Antibody IgA <2.0 APL-U/mL (<20.0); Anti Cardiolipin Antibody IgG <2.0 GPL-U/mL (<20.0); PS/PT AB IgG 10 U (<=30); PS/PT AB IgM 15 U (<=30)
== END 2023-05-17 11:47 | disposition home or self-care (01) ==
LOC: ANHGOSHLAB 11:48
PROVIDERS: PCP Internal Medicine; Visit Provider Clinical Nurse Specialist
DX: I26.99 Other pulmonary embolism without acute cor pulmonale (principal); I82.819 Embolism and thrombosis of superficial veins of unspecified lower extremity
CPT/HCPCS: 36415; 86146

== ENCOUNTER 2023-05-22 09:35 | Emergency (ER) | payer MEDICARE, SELFPAY ==
[2023-05-22] VITALS (24 sets, daily range): BP systolic 98–141; BP diastolic 68–89; PULSE 96–121; RESP 11–24; TEMP 36.9; O2SAT 93–98
--- NOTE | ~2023-05-22 | XR_ITS ---
EXAMINATION: XR chest 2V DATE: 05/22/2023 10:31 INDICATION: Dizziness and fall, head injury TECHNIQUE: AP and lateral views of the chest are obtained. COMPARISON: 04/27/2023 FINDINGS: The lungs are free of acute opacities. No pleural effusion or pneumothorax. The cardiomedia stinal silhouette is normal. There is moderate thoracic spondylosis. IMPRESSION: 1. No acute cardiopulmonary abnormality. Reviewed, dictated and finalized at location B. INDUSTRIAL DEVELOPMENT CONSULTANT
--- NOTE | ~2023-05-22 | CT_ITS ---
EXAMINATION: CT cervical spine wo con DATE: 05/22/2023 10:27 INDICATION: Head injury TECHNIQUE: Computed tomography (CT) of the cervical spine was performed without intravenous contrast. The dose-length product (DLP) was 602.73 mGy-cm. Automated exposure control and iterative reconstruc tion technique were employed. COMPARISON: None FINDINGS: Bone alignment is normal. There is no fracture. There is moderate loss of intervertebral di sc space height at C5-C6 and C6-7. The vertebral body heights are maintained. The odontoid process is intact. There is moderate facet and uncovertebral joint osteoarthritis in the mid and lower cervical spine. IMPRESSION: 1. Moderate cervical spondylosis without acute findings. Reviewed, dictated and finalized at location B. PRESIDENT PAYMENT
--- NOTE | ~2023-05-22 | CT_ITS ---
EXAMINATION: CT brain wo con INDICATION: Transient alteration of awareness, head injury COMPARISON: None TECHNIQUE: Standard unenhanced head CT. The dose-length product (DLP) was 681.00 mGy-cm. The mA was a djusted according to patient size. Iterative reconstruction technique was employed. FINDINGS: No acute intraparenchymal hemorrhage. No evidence of mass lesion. No evidence of acute infa rction. There is mild periventricular and subcortical hypodensity probably related to small vessel is chemic disease. There is mild prominence of the sulci and ventricles related to cerebral atrophy. Int racranial calcified cerebral atherosclerosis is noted. No extra-axial collections. No mass effect or midline shift. The orbits and soft tissues are unremarkable. There is mild mucosal thickening of the paranasal sinuses. IMPRESSION: 1. No acute intracranial abnormality. 2. Age related findings. Reviewed, dictated and finalized at location B. GER OF [facility] HE[facility] SERVICES
--- NOTE | 2023-05-22 09:42 | ECG_ITS ---
Measurements Intervals [place] Rate: 101 P: 36 AR: 120 QRS: -7 QRSD: 81 T: -2 QT: 341 QTc: 442 Interpretive Statements SINUS TACHYCARDIA ATRIAL PREMATURE COMPLEX CANNOT RULE OUT SEPTAL INFARCT, AGE INDETERMINATE INFERIOR INFARCT, AGE INDETERMINATE ABNORMAL ECG COMPARED TO ECG 04/27/2023 12:55:31 MYOCARDIAL INFARCT NOW PRESENT Electronically Signed On 05-22-2023 10:19:21 CARPET JOURNEYMAN by Oswaldo Hadley D.O.
--- NOTE | 2023-05-22 09:48 | ED.SYNCOPE ---
HPI - Syncope General Chief Complaint: Syncope Stated Complaint: SENT IN TO R/O PE Time Seen by Provider: 05/22/23 09:42 Source: patient Mode of arrival: EMS Limitations: no limitations History of Present Illness HPI narrative: This is a 77-year-old male that presents to the emergency department after a syncopal episode today. Reports last night he felt generally unwell and had the chills. This resolved and he slept well. Reports this morning after he had just urinated he started to feel very hot and nauseous. He passed out and hit his head on the bathtub. Reports feeling fine currently. He was able to be ambulatory after. He was recently hospitalized for pulmonary embolism and is currently on Eliquis. Denies chest pain, shortness of breath, vision changes, vomiting, palpitations. Related Data Home Medications Medication Instructions Recorded Confirmed multivitamin (Multiple Vitamins 1 tablet PO 209911/03/21 05/06/23 tablet) cholecalciferol (vitamin D3) 10 10 mcg PO 209904/27/23 05/06/23 mcg (400 unit) capsule vitamin B complex (B 1 tablet PO 209904/27/23 05/06/23 Complex-Vitamin B12 tablet) Allergies Allergy/AdvReac Type Severity Reaction Status Date / Time No Known Allergies Allergy Unverified 05/02/23 14:05 Review of Systems Review of Systems: CONSTITUTIONAL: Denies fever EYES: Denies visual changes CARDIOVASCULAR: Denies chest pain, palpitations, or edema. RESPIRATORY: Denies dyspnea. GASTROINTESTINAL: Denies vomiting MUSCULOSKELETAL: Denies back pain, joint pain, or myalgia. NEUROLOGIC: Denies numbness, or weakness. All systems reviewed & are unremarkable except as noted in HPI and below PMFSH Past Medical History Medical History Chicken pox Diet-controlled type 2 diabetes mellitus Heart murmur History of measles, mumps, or rubella Hyperlipidemia Mononucleosis Obstructive sleep apnea on CPAP Smoking history Surgical History Surgical History History of tonsillectomy Family History Family History Sibling Lung cancer Father Cerebrovascular accident, Onset Age: 85 Patient's father is Hypertension Mother Patient's mother is Type 2 diabetes mellitus COPD (chronic obstructive pulmonary disease) Aneurysm Other Diabetes mellitus Family history of coronary artery disease Social History Social History (Updated 05/02/23 @ 14:09 by Pipo Perez MA) Social History: Surrogate medical decision maker: Chelsi Box, spouse. Code status: Full code. Smoking packs per day: 1.5 Smoking cigarettes per day: 30.0 Years smoked: 34 Smoking pack-years: 51.00 Smoking status: Former smoker Smoking end date: 10/13/99 Alcohol intake: current Drinks per week: 1 Alcohol use details: Pt drinks socially. Substance use: never Substance use type: does not use Do You Feel Safe in your Home?: Yes Lack of Transportation: No Lack of Food: Never True Current Housing: I Have Housing Concerned About Future Housing: No Difficulty Paying Gas/Electric Bills: No Difficulty Paying for Meds: No Currently Unemployed: No Education: High School Diploma/GED Difficulty w/ Childcare or Family Care: No Additional living arrangements comments: Lives with spouse in [place]. Additional occupation/education comments: Retired. Spiritual care concerns: Yes Exam Narrative: GENERAL: Well-appearing, well-nourished, and in no acute distress. HEAD: Normocephalic, atraumatic. EYES: PERRLA and EOMI. ENT: Nares clear, no rhinorrhea or epistaxis. Mucous membranes moist. Oropharynx without tonsillar hypertrophy exudate or other lesions. Bilateral TMs pearly iverson non-bulging NECK: Supple. No adenopathy or masses. CHEST: Clear to auscultation. No respiratory distress. No wheezes rales or rhonchi
[2023-05-22 10:07] LABS: Basophils Percent Auto 0.4 % (0.2-1.2); Eosinophils Percent Auto 0.3 % (0-4.4); Hematocrit 44.4 % (42.0-52.0); Hemoglobin 14.2 g/dL (14.0-18.0); Immature Granulocyte Absolute 0.02 K/mm3 (0.00-0.031); Immature Granulocyte Percent A 0.3 % (0-0.5); Immature Platelet Fraction Pct 3.4 % (0.9-11.2); Lymphocytes Absolute Auto 0.66 K/mm3 (0.9-3.2); Lymphocytes Percent Auto 8.6 % (18.3-44.2); Mean Corpuscular Volume 93.7 fl (80-100); Mean Platelet Volume 10.9 fl (7.4-10.4); Monocytes Absolute Auto 0.5 K/mm3 (0.1-0.6); Monocytes Percent Auto 6.9 % (2.6-8.5); Neutrophils Absolute Auto 6.4 K/mm3 (1.3-6.7); Neutrophils Percent Auto 83.5 % (45.5-73.1); Platelet Count Result 141 k/mm3 (150-375); Red Blood Count 4.74 M/mm3 (4.6-6.20); Red Cell Distribution Width 13.3 % (11.5-14.5); White Blood Count 7.7 K/mm3 (4.5-10.0)
[2023-05-22 10:33] LABS: Alanine Aminotransferase 32 U/L (6-50); Alkaline Phosphatase 60 U/L (38-126); Anion Gap 9 mmol/L (8-16); Aspartate Amino Transferase 38 U/L (17-59); Bilirubin,Total 0.9 mg/dL (0.2-1.3); Blood Urea Nitrogen 16 mg/dL (9-20); Calcium 9.5 mg/dL (8.4-10.2); Carbon Dioxide 23 mmol/L (22-30); Chloride 105 mmol/L (98-107); Estimated CRCL calculation 81 ml/min; Estimated Glomerular Filt Rate > 60; Glucose 172 mg/dL (65-110); Sodium 137 mmol/L (137-145)
[2023-05-22] MEDS: SODIUM CHLORIDE 0.9% IV 500 ML 999 ML IV CONT ×2 (10:36→11:33)
[2023-05-22 10:44] LABS: Troponin I < 0.012 ng/mL (0.000-0.034)
[2023-05-22] MEDS: TETANUS,DIPHTHERIA,AC PERTUSSIS ADULT (0.5 ML) BOOSTRIX (11:34)
[2023-05-22 11:51] LABS: Influenza A QL RT-PCR Negative (Negative); Influenza B QL RT-PCR Negative (Negative); RSV RNA, RT-PCR Negative (Negative); SARS-CoV-2 RNA PCR Negative (Negative)
[2023-05-22 12:57] LABS: Appearance Urine Cloudy (Clear); Bacteria Urine None Seen /hpf; Bilirubin Urine Negative (Negative); Blood Urine Negative (Negative); Color Urine Dark Yellow (Yellow); Glucose Urine UA Negative (Negative); Ketones Urine 1+ mg/dL (Negative); Leukocyte Esterase Ur Negative LEU/UL (Negative); Nitrate Urine Negative (Negative); Non Pathogenic Casts 0-2; Protein Urine Trace mg/dL (Negative); RBC Urine 0-2 /hpf (0-2); Specific Grav Ur 1.029 (1.001-1.035); Squamous Epithelial Cell Urine None seen /hpf (Few); WBC Urine 0-5 /hpf
[2023-05-22 13:06] LABS: Add Urine Microscopic? YES
--- NOTE | 2023-05-22 13:26 | ECG_ITS ---
Measurements Intervals [place] Rate: 98 P: 65 WV: 142 QRS: 6 QRSD: 80 T: 2 QT: 341 QTc: 436 Interpretive Statements SINUS RHYTHM CONSIDER INFERIOR INFARCT, AGE INDETERMINATE ABNORMAL ECG COMPARED TO ECG 05/22/2023 09:45:16 SINUS RHYTHM NOW PRESENT Electronically Signed On 05-22-2023 14:11:24 PRODUCT COMMUNICATIONS MANAGER by Oswaldo Hadley D.O.
[2023-05-22] MEDS: SODIUM CHLORIDE 0.9% IV 1,000 ML 999 ML IV CONT (13:39)
--- NOTE | 2023-05-22 14:21 | PC.NURSE ---
Ambulatory in nunez with steady gait. Tolerated well.
== END 2023-05-22 15:15 | disposition home or self-care (01) ==
PROVIDERS: Student in an Organized Health Care Education/Training Program; Emergency Provider Physician Assistant; PCP Internal Medicine
DX: I95.1 Orthostatic hypotension (principal); R00.0 Tachycardia, unspecified; Z20.822 Contact with and (suspected) exposure to COVID-19; G47.30 Sleep apnea, unspecified; Z23 Encounter for immunization
CPT/HCPCS: 36415; 70450; 71046; 72125; 80053; 81001; 84484; 85025; 85055; 87637; 90471; 90715; 93005; 96360; 96361; 99284; J7030; J7040

== ENCOUNTER 2023-06-05 14:42 | Outpatient (CLI) | payer MEDICARE, SELFPAY ==
[2023-06-05 15:12] LABS: Hematocrit 47.4 % (42.0-52.0); Hemoglobin 15.4 g/dL (14.0-18.0); Mean Corpuscular HGB Conc 32.5 g/dl (32-36); Mean Corpuscular Hemoglobin 29.8 pg (26-34); Mean Corpuscular Volume 91.9 fl (80-100); Mean Platelet Volume 10.4 fl (7.4-10.4); Platelet Count Result 170 k/mm3 (150-375); Red Blood Count 5.16 M/mm3 (4.6-6.20); White Blood Count 6.8 K/mm3 (4.5-10.0)
[2023-06-05 17:10] LABS: D Dimer 0.52 ug/mL (<0.48)
[2023-06-07 13:08] LABS: Folic Acid 18.9 ng/mL (2.76->20)
[2023-06-08 16:16] LABS: Homocysteine 11.4 umol/L (<11.4)
== END 2023-06-05 14:43 | disposition home or self-care (01) ==
LOC: ANHLAB 14:45
PROVIDERS: Nurse Practitioner Family; PCP Internal Medicine; Visit Provider Internal Medicine Hematology & Oncology
DX: I26.09 Other pulmonary embolism with acute cor pulmonale (principal)
CPT/HCPCS: 36415; 82607; 82746; 83090; 85027; 85380

== ENCOUNTER 2023-09-02 09:29 | Outpatient (CLI) | payer MEDICARE, SELFPAY ==
--- NOTE | ~2023-09-02 | CT_ITS ---
CTA chest PE protocol Ordering provider: Shu Clements APRN History: 78 years Male with . ACUTE PE WITH ACUTE COR PULMONALE . Comparison: None. Technique: CT angiogram chest was performed following timed intravenous injection of contrast. Thin s lice axial images and reformatted coronal images were obtained. Three dimensional reformatted images of the chest were also obtained using a [employer] workstation. Radiation reduction technique utilized. DLP L is 803.34 mGy. Findings: PULMONARY ARTERIES: No pulmonary embolus. VISUALIZED THORACIC INLET: Normal. MEDIASTINUM: Aorta/coronary arteries: Mild atheromatous disease. Heart/other: The heart is not enlarged. Lymph nodes: No mediastinal or hilar adenopathy. LUNGS: 6 mm and 5 mm nodules seen in the left lower lobe laterally. No pulmonary masses. No infiltrates or e ffusions. No pneumothorax. VISUALIZED UPPER ABDOMEN: the visualized upper abdomen is normal. MUSCULOSKELETAL: Soft tissues: The superficial soft tissues are normal. Bones: Age appropriate degenerative changes of the spine. IMPRESSION: 1. No pulmonary embolism. 2. No acute cardiopulmonary pathology. 3. 2 nodules in the left lower lobe the largest measures [address] follow-up advised. Reviewed, dictated and finalized at location A. IMPRESSION: 1. No pulmonary embolism. 2. No acute cardiopulmonary pathology. 3. 2 nodules in the left lower lobe the largest measures [address] fol low-up advised.
--- NOTE | ~2023-09-02 | US_ITS ---
EXAMINATION: US venous doppler LE RT DATE: 09/02/2023 10:19 INDICATION: Acute pulmonary emboli with acute cor pulmonale. TECHNIQUE: Grayscale ultrasound images without and with compression and Doppler ultrasound images of the right lower extremity veins were obtained. COMPARISON: Ultrasound 04/28/2023 FINDINGS: The visualized portions of right common femoral vein, profunda (deep) femoral vein, femoral vein, pop liteal vein, peroneal veins, posterior tibial veins, and greater saphenous vein outflow are patent. IMPRESSION: 1. No deep venous thrombosis. Reviewed, dictated and finalized at location E.
[2023-09-02 09:55] LABS: Estimated Glomerular Filt Rate > 60
== END 2023-09-02 09:30 | disposition home or self-care (01) ==
LOC: ANHIMG 09:30
PROVIDERS: PCP Internal Medicine; Visit Provider Nurse Practitioner Family
DX: I26.09 Other pulmonary embolism with acute cor pulmonale (principal); I82.401 Acute embolism and thrombosis of unspecified deep veins of right lower extremity; R91.8 Other nonspecific abnormal finding of lung field
CPT/HCPCS: 71275; 93971; Q9967

== ENCOUNTER 2023-09-11 10:47 | Outpatient (CLI) | payer MEDICARE, SELFPAY ==
[2023-09-11 11:05] LABS: Hematocrit 45.2 % (42.0-52.0); Hemoglobin 14.6 g/dL (14.0-18.0); Mean Corpuscular HGB Conc 32.3 g/dl (32-36); Mean Corpuscular Hemoglobin 29.7 pg (26-34); Mean Corpuscular Volume 92.1 fl (80-100); Mean Platelet Volume 10.1 fl (7.4-10.4); Platelet Count Result 182 k/mm3 (150-375); Red Blood Count 4.91 M/mm3 (4.6-6.20); Red Cell Distribution Width 13.9 % (11.5-14.5); White Blood Count 5.3 K/mm3 (4.5-10.0)
[2023-09-11 13:34] LABS: D Dimer 0.44 ug/mL (<0.48)
[2023-09-11 14:31] LABS: Folic Acid > 20.0 ng/mL (2.76->20)
[2023-09-12 10:32] LABS: Homocysteine 10.2 umol/L (<11.4)
== END 2023-09-11 10:48 | disposition home or self-care (01) ==
LOC: ANHLAB 10:50
PROVIDERS: Nurse Practitioner Family; PCP Internal Medicine; Visit Provider Internal Medicine Hematology & Oncology
DX: I26.09 Other pulmonary embolism with acute cor pulmonale (principal); E53.8 Deficiency of other specified B group vitamins
CPT/HCPCS: 36415; 82607; 82746; 83090; 85027; 85380

== ENCOUNTER 2023-09-13 09:30 | Outpatient (CLI) | payer MEDICARE, SELFPAY ==
[2023-09-19 00:43] LABS: Lupus dRVVT Confirmation POSITIVE (NEGATIVE); Lupus dRVVT Screen 55 sec (< OR = 45); PTT-LA Screen 32 sec (< OR = 40)
[2023-09-19 04:48] LABS: Antithrombin III Activity 83 % normal (80-135)
== END 2023-09-13 09:31 | disposition home or self-care (01) ==
LOC: ANHLAB 09:32
PROVIDERS: Nurse Practitioner Family; PCP Internal Medicine; Visit Provider Internal Medicine Hematology & Oncology
DX: I26.09 Other pulmonary embolism with acute cor pulmonale (principal); I82.401 Acute embolism and thrombosis of unspecified deep veins of right lower extremity; D68.59 Other primary thrombophilia
CPT/HCPCS: 36415; 85300; 85303; 85306; 85613; 85730; 86146

== ENCOUNTER 2023-10-21 10:40 | Outpatient (CLI) | payer MEDICARE, SELFPAY ==
[2023-10-24 07:33] LABS: Lupus dRVVT Screen 38 sec (< OR = 45); PTT-LA Screen 37 sec (< OR = 40)
== END 2023-10-21 10:41 | disposition home or self-care (01) ==
LOC: ANHLAB 10:44
PROVIDERS: Nurse Practitioner Family; PCP Internal Medicine; Visit Provider Internal Medicine Hematology & Oncology
DX: D68.59 Other primary thrombophilia (principal)
CPT/HCPCS: 36415; 85613; 85730

== ENCOUNTER 2024-02-17 08:50 | Outpatient (CLI) | payer MEDICARE, SELFPAY ==
--- NOTE | ~2024-02-17 | CT_ITS ---
CT Scan of the Chest without Contrast: Clinical Indication: Lung nodules Technique: Contiguous sections were acquired throughout the chest without intravenous contrast. Dose reduction technique was used on this scan by utilizing automated exposure control and iterative recon struction technique. The dose-length product (DLP) was 178.96 mGy-cm. COMPARISON: 09/02/2023 Findings: There is no evidence of any significant mediastinal, hilar or axillary lymphadenopathy. Coronary bahman ry calcifications are present. There is no evidence of pleural or pericardial effusion. Calcified left apical granuloma present. Stable 5 mm pleural-based nodule at the left lower lobe (axi al image 88). Stable additional 4 mm pleural-based nodule in the left lower lobe (axial image 87). Images through the upper abdomen reveal no abnormalities. Impression: Stable subcentimeter pleural-based nodules at the left lower lobe, as detailed above. Reviewed, dictated and finalized at [facility]. ATIONS RESEARCH MANAGER Impression: Stable subcentimeter pleural-based nodules at the left lower lobe, as detailed above.
== END 2024-02-17 08:51 | disposition home or self-care (01) ==
PROVIDERS: PCP Internal Medicine; Visit Provider Internal Medicine Hematology & Oncology
DX: R91.8 Other nonspecific abnormal finding of lung field (principal)
CPT/HCPCS: 71250

== ENCOUNTER 2025-02-15 08:30 | Outpatient (CLI) | payer MEDICARE, SELFPAY ==
--- NOTE | ~2025-02-15 | CT_ITS ---
EXAMINATION:CT diagnostic chest w con DATE: 02/15/2025 08:54 INDICATION: Pulmonary embolism. Pulmonary nodules. TECHNIQUE: Computed tomography (CT) of the chest was performed with 75 mL Omnipaque 350 intravenous contrast. Automated exposure control and iterative reconstruction technique were employed. The dose-length product (DLP) was 415.27 mGy-cm. COMPARISON: Chest CT 02/17/2024, 04/27/2023 FINDINGS: There is mild scarring at the lung apices. There is mild atelectasis bilaterally. There are a few scattered nodules in the lungs measuring up to 6 mm in left lower lobe. A calcified left lung nodule is consistent with old granulomatous disease. No pleural effusion. The heart size is normal. There are coronary artery calcifications. No pericardial effusion. There is severe thoracic spondylosis. IMPRESSION: 1. Pulmonary nodules measuring up to 6 mm, stable from 04/27/2023, likely benign. Reviewed, dictated and finalized at location E. GAGE CLOSING CLERK IMPRESSION: 1. Pulmonary nodules measuring up to 6 mm, stable from 04/27/2023, likely benign .
--- OUTSIDE RECORDS SUMMARY | 2025-02-15 08:48 | XMS_ITS | Clinical Summary ---
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 Gender Identity Not on file Sexual Orientation Not on file Plan of Treatment Health Maintenance Due Date Last Done Comments Hepatitis C 1963 DTaP, Tdap and Td Vaccines ( 1 - Tdap) 1965 Pneumococcal Vaccine: 50+ Ye ars (1 of 1 - PCV) 1996 Zoster Vaccines (1 of 2) 1996 RSV Immunization or 60+ Years (1 - 1-dose 75+ series) 2021 COVID-19 Vaccine ( - 2024-2 6 season) 2024 Influenza Adult (#1) 2024 Hepatitis A Vaccines Aged Out No long er eligible based on patient's age to complete this topic Meningococcal B Vaccine Aged Out No l onger eligible based on patient's age to complete this topic Meningococcal Vaccine Aged Out No dmitry ngoc eligible based on patient's age to complete this topic RSV Immunizations Under 20 Months Aged Out No longer eligible based on patient's age to complete this topic
--- OUTSIDE RECORDS SUMMARY | 2025-02-15 08:48 | XMS_ITS | Clinical Summary ---
Author Organization [facility] Address [address] [place] [address] Care Team Providers Care Cheese Cutter Name Role Phone TravisFaustino joshua Luiz Primary Care Provider Allergies No known active allergies Medications ezetimibe (ZETIA) 10 mg tablet Take 10 mg by mouth daily. 12/01/2020 Active Cholecalciferol, Vitamin D3, 50 mcg (2,000 unit) Capsule Take by mouth. Active cyanocobalamin 1,000 mcg Tablet Take 1,000 mcg by mouth daily. Active multivitamin (DAILY-TOMAS) tablet Take 1 Tablet by mouth daily. Active Eliquis 5 mg tablet Take 1 Tablet (5 mg) by mouth 2 times daily. 60 Tablet 08/15/2023 Active metFORMIN (GLUCOPHAGE) 500 mg tablet Take 250 mg by mouth 2 times daily with meals. 08/09/2023 Active folic acid (FOLVITE) 1 mg tablet Take 1 Tablet (1 mg) by mouth daily. 90 Tablet 12/28/2024 Active Active Problems Problem Noted Date Diagnosed Date Acute pulmonary embolism with acute cor pulmonal e 06/05/2023 Acute deep vein thrombosis (DVT) of right lower extremity 06/05/2023 Encounters Date Type Department Care Team Description 01/06/2025 External Device Data ST[facility] ABSTRACTION Provider, Abstract 01/05/2025 External Device Data STL ABSTRACTION Provider, Abstract 12/28/2024 Refill [facility] Oncology [facility] H[facility]ology - [place] [address] [place] [address] Benson Bradford MD 12/01/2024 External Device Data STL ABSTRACTION Provider, Abstract 12/01/2024 External Device Data STL ABSTRACTION Provider, Abstract from Last 3 Months Family History Medical History Relation Name Comments Diabetes Mother Relation Name Status Comments Brother Father Mother Social History Tobacco Use Types Packs/Day Years Used Date Smoking Tobacco: Former Cigarettes 1 60.9 S tarted: 1964 Smokeless Tobacco: Never Alcohol Use Standard Drinks/Week Comments Yes 0 (1 standard drink = 0.6 oz pur e alcohol) Sex and Gender Information Value Date Recorded Sex Assigned at Not on file Legal Sex Male 12:29 PM CDT Gender Identity Not on file Sexual Orientation Not on file Last Filed Vital Signs Vital Sign Reading Time Taken Comments Blood Pressure 119/90 09/27/2023 10:27 AM CDT Pulse 78 09/27/2023 10:24 AM CDT Temperature 36.4 C (97.6 F) 09/27/2023 10:24 AM CDT Respiratory Rate 15 09/27/2023 10:2 4 AM CDT Oxygen Saturation 96% 09/27/2023 10: 24 AM CDT Inhaled Oxygen Concentration - - Weight 105.8 kg (233 lb 3.2 oz) 024 10:24 AM CDT Height 172.7 cm (5' 8) 06/05/2023 1:36 PM CDT Body Mass Index 35.46 06/05/2023 1:36 PM CDT Plan of Treatment Upcoming Encounters Date Type Department Care Team (Late st Contact Info) Description 02/25/2025 10:00 AM [employer]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 Office Visit [facility] Hematology - [place] [address] [facility] [address] [place] [address] Benson Bradford MD [address] [facility] [address] [place] [address] Health Maintenance Due Date Last Done Comments PNEUMOCOCCAL VACCINE 50+ YEA RS (1 of 1 - PCV) 1996 DTAP/TDAP/TD VACCINES (2 - Td or Tdap) 08/09/2020 RSV VACCINE (60+ or ) (1 - 1-dose 75+ series) 2021 INFLUENZA VACCINE (#1) 2024 ZOSTER VACCINE Completed 10/17/2020, 08/11/2020 Insurance MEDICARE PART A AND B BCBS SUPP Care Teams Cheese Cutter Relationship Specialty Start Date End Date Faustino Lanier DO [address] [address] PCP - General Internal Medicine 06/05/23
--- OUTSIDE RECORDS SUMMARY | 2025-02-15 08:48 | XMS_ITS | Clinical Summary ---
Author Organization [facility] Address [address] [place] [id number] Care Team Providers Care It Audit Manager Name Role Phone Faustino Lanier DO Primary Care Provider [phone] Allergies No known active allergies Medications ezetimibe (ZETIA) 10 mg tablet Take 10 mg by mouth daily 12/01/2020 Active metFORMIN (GLUCOPHAGE) 500 mg tablet Take 500 mg by mouth 2 (two) times a day with meals Active atorvastatin (LIPITOR) 10 mg tablet Take 10 mg by mouth daily Active Active Problems Problem Noted Date Diagnosed Date Elevated PSA 12/19/2020 Medical History Medical History Date Comments Diabetes mellitus Thyroid disease Family History Medical History Relation Name Comments Stroke Father Aneurysm Mother heart Diabetes Mother Relation Name Status Comments Father Mother Social History Tobacco Use Types Packs/Day Years Used Date Smoking Tobacco: Former Smokeless Tobacco: Never Personal Safety Answer Date Recorded Getting School Help Needed Not on file 05/18 Sex and Gender Information Value Date Recorded Sex Assigned at Not on file Legal Sex Male 4:42 PM CDT Gender Identity Not on file Sexual Orientation Not on file Last Filed Vital Signs Vital Sign Reading Time Taken Comments Blood Pressure 131/79 04/03/2022 1:57 PM [employer] Pulse 84 04/03/2022 1:57 PM [employer] Temperature 36.1 C (97 F) 12/19/2020 11:30 AM CDT Respiratory Rate - - Oxygen Saturation 98% 04/03/2022 1:57 PM [employer] Inhaled Oxygen Concentration - - Weight 106.6 kg (235 lb) 04/03/2022 1:57 PM [employer] Height 172.7 cm (5' 8) 04/03/2022 1:57 PM [employer] Body Mass Index 35.73 04/03/2022 1:57 PM [employer] Plan of Treatment Health Maintenance Due Date Last Done Comments Depression Screening 1945 Fall Risk Assessment 1945 Hepatitis C Screening 1945 DTaP/Tdap/Td Vaccine (1 - Tdap) 1957 Hepatitis B Screening 1964 Pneumococcal vaccine 65+ (1 of 1 - PCV) 1996 Abdominal Aortic Aneurysm (A AA) Screen 08/01/2011 Well Visit 65+ 08/01/2011 Covid-19 Vaccine (2 - 2024- season) 11/16/202411/2020 Influenza Vaccine (#1) 2024 , 01/29/2019, 12/15/2017 Zoster Vaccine Completed 10/17/2020, 08/11/2020 Insurance MEDICARE [facility] [employer] [place] [id number] Care Teams It Audit Manager Relationship Specialty Start Date End Date Faustino Lanier DO PCP - General Internal Medicine 12/09/20
[2025-02-15 08:51] LABS: Estimated Glomerular Filt Rate > 60
== END 2025-02-15 08:31 | disposition home or self-care (01) ==
PROVIDERS: PCP Internal Medicine; Visit Provider Internal Medicine Hematology & Oncology
DX: Z86.711 Personal history of pulmonary embolism (principal); R91.8 Other nonspecific abnormal finding of lung field
CPT/HCPCS: 71260; Q9967